=== PATIENT | male | born 1955 | race Caucasian/White ===

== ENCOUNTER 2018-01-04 15:39 | Emergency (ER) | payer OTHER, SELFPAY ==
[2018-01-04 15:40] VITALS: BP 138/80; PULSE 98; RESP 18; TEMP 37.2; O2SAT 95; BMI 29.4
--- NOTE | 2018-01-04 16:16 | ED.DCSUM_ITS ---
- ER Visit Summary Date of Service: 01/04/18 Chief Complaint: Cough History of Present Illness: The patient is a 62 M who is currently visiting from [place] taking care of his girlfriend who has the flu. Patient developed mild cough last evening with low-grade fever. He is requesting an influenza test. He states he does not want to take Tamiflu. Physical Examination: Vital signs are remarkable for temperature of 99.0. Head neck examination is normal. Heart is regular rate and rhythm. Lung sounds are clear. Abdomen is soft nontender. Skin examination was no rash or lesions. Test Results: Influenza swab is sent. Emergency Department Course and Treatment: I was advised by nursing staff that the patient does not wish to remain here in the emergency room awaiting his test results. He can call in to receive those results. He has stated that he does not want Tamiflu. Treatment Plan: [] Disposition: Discharge Impression: URI This note was generated with [employer] dictation software. It may contain incorrect words, spelling, and punctuation that were not noted in review of the chart prior to signing ED Disposition - Plan for ED Patient: Chief Complaint: Cold Sx Referrals: NOT,DEFINED [NON-STAFF] -
--- NOTE | 2018-01-04 16:40 | ED.DEP ---
ED Disposition - Plan for ED Patient: Disposition: Home or Assisted Living Chief Complaint: Cold Sx Instructions: ED Upper Resp Infec No Abx Tx Additional Instructions: You can call back in to get your influenza test results - [phone]
== END 2018-01-04 16:48 | disposition home or self-care (01) ==
PROVIDERS: Emergency Provider Emergency Medicine
DX: J06.9 Acute upper respiratory infection, unspecified (principal)
CPT/HCPCS: 87804; 99282